=== PATIENT | female | born 1980 | race Caucasian/White ===

== ENCOUNTER 2025-06-05 16:47 | Emergency (ER) | payer MEDICAID ==
[~2025-06-05] VITALS: Ht 154.9 cm; Wt 59.0 kg
[2025-06-05 16:52] VITALS: O2SAT 100
[2025-06-05 17:27] LABS: PLATELET 271 x1000/uL (130-400); RED BLOOD CELL COUNT 4.07 mill/uL (4.2-5.4); RED CELL DISTRIBUTION WIDTH 13.3 % (11.6-14.6)
[2025-06-05 17:53] LABS: CREATININE 0.9 mg/dL (0.6-1.0)
[2025-06-05 17:54] LABS: TROPONIN I HIGH SENSITIVITY 6 ng/L (3.0-34); UREA NITROGEN BLOOD 14 mg/dL (9-23)
[2025-06-05 17:55] LABS: ASPARTATE AMINOTRANSFERASE 72 IU/L (<34)
[2025-06-05 17:56] LABS: BILIRUBIN TOTAL 0.9 mg/dL (0.1-1.0); PROTEIN TOTAL 8.1 g/dL (6.0-8.3)
[2025-06-05] MEDS ORDERED: CHLORDIAZEPOXIDE 25MG CAPSULE PO NR (18:15)
[2025-06-05 19:07] LABS: HCG SCREEN NEGATIVE
[2025-06-05] MEDS: CHLORDIAZEPOXIDE 25MG CAPSULE PO SCH (20:42)
[2025-06-05] MEDS: CLONIDINE 0.1MG TABLET PO SCH (22:11)
[2025-06-05] MEDS ORDERED: CLONIDINE 0.2MG TABLET PO ONE (22:15)
[2025-06-06 00:47] VITALS: BP 137/98; PULSE 73; RESP 12; TEMP 36.9; O2SAT 100
[2025-06-06 00:47] LABS: TROPONIN I HIGH SENSITIVITY 5 ng/L (3.0-34)
== END 2025-06-06 01:08 | disposition home or self-care (01) ==
LOC: ER 16:47
DX: I10 Essential (primary) hypertension (principal); E78.00 Pure hypercholesterolemia, unspecified; Z88.0 Allergy status to penicillin
CPT/HCPCS: 36415; 71045; 80053; 84484; 84703; 85027; 93005; 99285